=== PATIENT | female | born 2000 ===

== ENCOUNTER 2022-10-18 11:17 | Day surgery (SDC) | payer OTHER ==
[2022-10-17 11:47] VITALS: BMI 14.6
[~2022-10-18 11:17] MED LIST: Magnevist 469MG/ML 20 ML VIAL ONE
[2022-10-18] MEDS ORDERED: Midazolam HCl 2 mg/2 ml Vial ONE (13:17)
[2022-10-18] MEDS ORDERED: Dexmedetomidine 200 MCG/2 ML VIAL ONE (13:18)
[2022-10-18] MEDS ORDERED: fentaNYL 50 mcg/mL 1 mL Vial ONE (13:18)
[2022-10-18] MEDS ORDERED: Ketamine 50 MG/ML (10ML VIAL) ONE (13:18)
[2022-10-18] MEDS ORDERED: SUGAMMADEX SODIUM 200 MG/2 ML VIAL ONE (13:22)
[2022-10-18] MEDS ORDERED: Ondansetron PF 4 MG/2 ML Vial ONE (14:00)
[2022-10-18] MEDS ORDERED: Lidocaine 1% PF 5 ML VIAL ONE (14:00)
[2022-10-18] MEDS ORDERED: PHENYLEPHRINE-NS 100 MCG/ML 10 ML SYRINGE ONE (14:00)
[2022-10-18] MEDS ORDERED: Dexamethasone 20 MG/5 ML VIAL ONE (14:00)
[2022-10-18] MEDS ORDERED: Rocuronium Bromide 10 MG/ML (10ML VIAL) ONE (14:00)
[2022-10-18] MEDS ORDERED: ePHEDrine Sulfate 50 MG/10 ML VIAL ONE (14:00)
[2022-10-18] MEDS ORDERED: PROPOFOL 200 MG/20 ML VIAL ONE (14:00)
[2022-10-18 16:07] LABS: #Eosinphils 0.1 thou/uL (0.0-0.7); #Monocytes 0.2 thou/uL (0.11-0.59); #Neutrophils 1.9 thou/uL (1.40-6.50); %Basophils 0.8 % (0.0-1.0); %Eosinophils 1.4 % (0.0-10.0); %Lymphocytes 39.1 % (21.0-51.0); %Neutrophils 52.4 % (42.0-75.0); Hemoglobin 13.2 g/dL (12.0-16.0); Mean Corpuscular HGB CONC 34.2 g/dL (32.0-36.0); Mean Corpuscular Hemoglobin 32.8 pg (27.0-31.0); Mean Corpuscular Volume 95.8 fl (78.0-98.0); Mean Platelet Volume 9.7 fL (7.4-10.4); Platelet Count 255 10x3/uL (130-400); RBC Distribution Width 13.3 % (11.5-14.5); Red Blood Cell (RBC) Count 4.03 mill/uL (4.20-5.40); White Blood Cell (WBC) Count 3.7 10x3/uL (4.8-10.8)
[2022-10-18 16:19] LABS: ALT (SGPT) 7 U/L (8-55); AST (SGOT) 14 U/L (5-34); Albumin 3.9 g/dL (3.5-5.0); Alkaline Phosphatase 62 U/L (40-110); Anion Gap 13 mmol/L (10-20); BUN (Urea Nitrogen) 6 mg/dL (7.0-18.7); Bilirubin, Total 0.9 mg/dL (0.2-1.2); Calc. Creatinine Clearance 65 mL/min (70-130); Calcium 9.1 mg/dL (7.8-10.44); Carbon Dioxide 24 mmol/L (22-29); Chloride 107 mmol/L (98-107); Estimated GFR 111; Globulin 3.5 g/dL (2.4-3.5); Glucose 120 mg/dL (70-105); Potassium 3.5 mmol/L (3.5-5.1); Protein, Total 7.4 g/dL (6.0-8.3); Sodium 140 mmol/L (136-145)
[2022-10-18] MEDS ORDERED: Acetaminophen 325 MG/10.15 ML UDCUP ONE (16:34)
[2022-10-18 16:55] LABS: CSF Source CSF; Clarity Clear (Clear); Tube # 4
[2022-10-18 17:01] LABS: CSF, Glucose 63 mg/dl (40-70); CSF, Protein 37 mg/dL (15-40)
[2022-10-19 12:14] LABS: Ref Lab Test Ordered NMDA IgG; Reference Lab Name LABCORP
[2022-10-19 12:20] LABS: Reference Lab Name LABCORP
[2022-10-19 12:24] LABS: Reference Lab Name LABCORP
== END 2022-10-18 17:00 | disposition home or self-care (01) ==
LOC: MRI 11:17 → EDSTATUS 13:00 → MRI 17:00
PROVIDERS: ATTEND Internal Medicine
PROC: 009U3ZZ Drainage of Spinal Canal, Percutaneous Approach (ICD-10-PCS; principal; 2022-10-18)
PROC: B01BZZZ Fluoroscopy of Spinal Cord (ICD-10-PCS; principal; 2022-10-18)
DX: Q90.9 Down syndrome, unspecified (principal); R62.50 Unspecified lack of expected normal physiological development in childhood; F79 Unspecified intellectual disabilities; E06.3 Autoimmune thyroiditis; Z91.011 Allergy to milk products
CPT/HCPCS: 36415; 62270; 70553; 82040; 82042; 82565; 82607; 82784; 82945; 83916; 84157; 85025; 85652; 86140; 86376; 86800; 87070; 87205; 89051; A9579; J1100; J2250; J2405; J2704; J3010